=== PATIENT | male | born 1965 | race Caucasian/White ===

== ENCOUNTER 2022-12-08 07:35 | Day surgery (SDC) | payer BC ==
[~2022-12-08 07:35] MED LIST: Lactated Ringers 1,000 ML IV SCH
[2022-12-08] MEDS ORDERED: fentaNYL 100 MCG/2 ML SDV ONE (08:23)
[2022-12-08] MEDS ORDERED: Propofol 200 MG/20 ML SDV ONE ×2 (08:23→09:21)
== END 2022-12-08 10:54 | disposition home or self-care (01) ==
LOC: VM.SDS 07:35
PROVIDERS: ATTEND Family Medicine
DX: Z12.11 Encounter for screening for malignant neoplasm of colon (principal); K57.30 Diverticulosis of large intestine without perforation or abscess without bleeding; F41.9 Anxiety disorder, unspecified; Z88.6 Allergy status to analgesic agent; Z79.899 Other long term (current) drug therapy; Z87.19 Personal history of other diseases of the digestive system; Z88.0 Allergy status to penicillin; Z98.890 Other specified postprocedural states; Z87.891 Personal history of nicotine dependence
CPT/HCPCS: 00811; 45378; J2704; J3010; J7120